=== PATIENT | male | born 1950 ===

== ENCOUNTER → 2022-10-07 15:00 | Outpatient (CLI) | payer SELFPAY ==
[2022-10-08 20:19] LABS: Rubella Antibody IgG > 350.0 IU/mL (>15)
[2022-10-09 15:36] LABS: Rubeola Measles IgG > 300.0 AU/mL (Immune >16.4); Varicella IgG Antibody 1112 index (Immune >165)
[2022-10-10 09:17] LABS: Hepatitis B Surf AB Quant 35.9 mIU/mL (Immunity>9.9)
[2022-10-10 14:37] LABS: Mumps Virus IgG Antibody 42.3 AU/mL (Immune >10.9)
[2022-10-12 12:49] LABS: QuantiFERON Mitogen Value >10.00 IU/mL (.); QuantiFERON TB Gold Plus Negative (Negative); QuantiFERON TB1 Ag Value 0.05 IU/mL (.); QuantiFERON TB2 Ag Value 0.05 IU/mL (.)
== END ==
DX: Z02.1 Encounter for pre-employment examination (principal)
CPT/HCPCS: 36415; 86480; 86706; 86735; 86762; 86765; 86787